=== PATIENT | male | born 1970 | race Caucasian/White ===

== ENCOUNTER → 2016-05-07 | Day surgery (SDC) | payer BC ==
[~2016-05-07] VITALS: Ht 175.3 cm; Wt 67.1 kg
[~2016-05-07] MED LIST: BENAZEPRIL HCL20 MG PO; HYDROCHLOROTHIA25 MG PO; IBUPROFEN800 MG PO; LIPITOR TAB 2020 MG PO; NORCO 5-325 TA1 EACH PO; PERCOCET 5-3251 EACH PO; PHENERGAN 12.12.5 M1 PO; STOOL SOFTENER250 MG PO
[2016-05-07 12:00] LABS: BUN/CREATININE RATIO 15 (0-10)
== END | disposition home or self-care (01) ==
LOC: OR 10:00
PROVIDERS: Orthopaedic Surgery
PROC: 0PBB4ZZ Excision of Left Clavicle, Percutaneous Endoscopic Approach (ICD-10-PCS; 2016-05-07)
PROC: 0RBK4ZZ Excision of Left Shoulder Joint, Percutaneous Endoscopic Approach (ICD-10-PCS; 2016-05-07)
PROC: 0LS40ZZ Reposition Left Upper Arm Tendon, Open Approach (ICD-10-PCS; principal; 2016-05-07 12:30)
DX: S43.432A Superior glenoid labrum lesion of left shoulder, initial encounter (principal); M75.22 Bicipital tendinitis, left shoulder; M19.012 Primary osteoarthritis, left shoulder; I10 Essential (primary) hypertension; E78.5 Hyperlipidemia, unspecified; K21.9 Gastro-esophageal reflux disease without esophagitis; Z79.899 Other long term (current) drug therapy; Z98.818 Other dental procedure status; V89.2XXA Person injured in unspecified motor-vehicle accident, traffic, initial encounter
CPT/HCPCS: 36415; 73030; 80048; C1713; J0171; J0690; J2001; J2250; J2795; J3010; J7120

== ENCOUNTER → 2020-11-18 | Outpatient (CLI) | payer OTHER ==
[~2020-11-18] MED LIST changes: +CARAFATE1 GM PO; +DOCUSATE SODIU250 MG PO; +HYDROCODON-ACE1 EAC4 PO; +LIPITOR TAB 1010 MG PO; +LOTREL 10-20 M1 EACH PO; +PERCOCET 7.5-31 EACH PO; +PRILOSEC OTC20 MG PO; +ZANTAC150 MG PO; +ZOFRAN4 MG PO
== END ==
LOC: KOH-I 14:22
DX: M47.26 Other spondylosis with radiculopathy, lumbar region (principal); M51.16 Intervertebral disc disorders with radiculopathy, lumbar region; I10 Essential (primary) hypertension; K21.9 Gastro-esophageal reflux disease without esophagitis; E78.5 Hyperlipidemia, unspecified; J45.909 Unspecified asthma, uncomplicated
CPT/HCPCS: 72148

== ENCOUNTER → 2021-01-29 | Outpatient (CLI) | payer OTHER | LOC: KOH-I 13:58 | DX: R07.82 Intercostal pain (principal); M25.512 Pain in left shoulder | CPT/HCPCS: 71101 ==

== ENCOUNTER → 2021-03-31 | Outpatient (CLI) | payer OTHER | LOC: SLEEP 21:30 | DX: I48.0 Paroxysmal atrial fibrillation (principal); G47.33 Obstructive sleep apnea (adult) (pediatric) | CPT/HCPCS: 95810 ==

== ENCOUNTER → 2021-10-16 | Outpatient (CLI) | payer OTHER | LOC: KOH-I 10:11 | DX: M25.551 Pain in right hip (principal); M16.11 Unilateral primary osteoarthritis, right hip | CPT/HCPCS: 73502 ==